=== PATIENT | female | born 1985 | race Caucasian/White ===

== ENCOUNTER → 2016-08-05 | Outpatient (CLI) | payer BC, OTHER ==
[~2016-08-05] MED LIST: ACET325T96 PO; IBUP-1050 PO; NORE1CHW2 PO; OXYC-57 PO; PRENTAB26 PO
[2016-08-05 10:56] LABS: HEMATOCRIT 33.3 % (37-47)
[2016-08-05 11:39] LABS: GTGD 50 Grams
[2016-08-05 18:28] LABS: URINE APPEARANCE CLOUDY (CLEAR); URINE BILIRUBIN NEG (NEG); URINE COLOR DK YELLOW; URINE EPITHELIAL CELL AUTO >30 /lpf (0-5); URINE NITRITE NEG (NEG); URINE SPECIFIC GRAVITY 1.023 (1.000-1.030); UROBILINOGEN NEG (NEG)
[2016-08-05 18:29] LABS: MANUAL MICROSCOPIC REQUIRED? NO; REVIEW REQ? YES
== END | disposition home or self-care (01) ==
LOC: C.LAB1850 09:40
PROVIDERS: ATTEND Obstetrics & Gynecology
DX: Z34.83 Encounter for supervision of other normal pregnancy, third trimester (principal)

== ENCOUNTER → 2016-08-13 | Outpatient (CLI) | payer BC, OTHER | END | disposition home or self-care (01) | LOC: C.LAB1850 09:06 | PROVIDERS: ATTEND Obstetrics & Gynecology | DX: O28.9 Unspecified abnormal findings on antenatal screening of mother (principal); Z3A.00 Weeks of gestation of pregnancy not specified ==

== ENCOUNTER → 2016-10-08 | Outpatient (CLI) | payer BC, OTHER | END | disposition home or self-care (01) | LOC: C.LABSPEC 15:29 | PROVIDERS: ATTEND Obstetrics & Gynecology | DX: Z34.83 Encounter for supervision of other normal pregnancy, third trimester (principal) ==

== ENCOUNTER → 2016-12-23 | Outpatient (CLI) | payer BC, OTHER ==
[~2016-12-23] MED LIST changes: -ACET325T96 PO; -IBUP-1050 PO; -NORE1CHW2 PO
== END | disposition home or self-care (01) ==
LOC: C.PAPS 13:44
PROVIDERS: ATTEND Obstetrics & Gynecology
DX: Z01.419 Encounter for gynecological examination (general) (routine) without abnormal findings (principal)

== ENCOUNTER → 2017-01-17 | Outpatient (CLI) | payer BC ==
[~2017-01-17] MED LIST changes: -OXYC-57 PO
[2017-01-17 12:09] LABS: BASO % 0.5 %; BASO ABS # 0.04 K/uL (0-0.2); COMPLETE YES; EOS % 3.1 %; HEMATOCRIT 39.1 % (37-47); IG% 0.1 %; LYMPH % 39.3 %; LYMPH ABS # 3.21 K/uL (1.2-3.4); MEAN CELL VOLUME 90.5 fL (80-100); MEAN CORPUSCULAR HEMOGLOBIN 29.2 pg (25-34); MEAN CORPUSCULAR HGB CONC 32.2 g/dl (32-36); MONO % 5.6 %; NEUT % 51.4 %; PLATELET COUNT 264 K/uL (130-400); RED BLOOD COUNT 4.32 M/uL (4.2-5.4); WHITE BLOOD COUNT 8.16 K/uL (4.8-10.8)
== END | disposition home or self-care (01) ==
LOC: C.LAB1850 10:48
PROVIDERS: ATTEND Obstetrics & Gynecology
DX: Z01.818 Encounter for other preprocedural examination (principal)

== ENCOUNTER → 2017-01-23 | Day surgery (SDC) | payer BC, OTHER ==
[2016-12-31 14:50] VITALS: Ht 152.4 cm; Wt 60.0 kg
[~2017-01-23] VITALS: Ht 152.4 cm; Wt 60.0 kg
[~2017-01-23] MED LIST changes: +ATROPINE SULFATE 0.1 MG/ML 5ML SYR IV PRN; +BUPIVACAINE 0.25% 2.5MG/ML PF 10 ML VIAL ONE; +DEXAMETHASONE SOD INJ 4 MG/ML VIAL ONE; +EpHEDrine SULFATE INJ 50 MG/ML AMP IV PRN; +EpHEDrine SULFATE INJ 50 MG/ML AMP ONE; +FENTANYL CITRATE INJ 50 MCG/1 ML 2 ML VIAL ONE; +GLYCOPYRROLATE INJ 0.2 MG/ML VIAL ONE; +KETOROLAC TROMETHAMINE 30 MG/ML VIAL ONE; +LABETALOL HCL IV 5 MG/ML 20ML IV ONE; +LACTATED RINGER'S 1000ML 1,000 ML IV SCH; +LIDOCAINE HCL 2% 2 ML VIAL (20MG/ML) ONE; +MIDAZOLAM HCL 1 MG/ML 2ML VIAL ONE; +NEOSTIGMINE METHYLSULFATE 5 MG/5 ML SYR ONE; +ONDANSETRON INJ 2 MG/ML 2 ML VIAL IV PRN; +ONDANSETRON INJ 2 MG/ML 2 ML VIAL ONE; +OXYC-57 PO; +OXYCODONE/ACETAMINOPHEN 5-325 TAB PO PRN; +PHENYLEPHRINE HCL INJ 10 MG/ML VIAL ONE; +PROMETHAZINE HCL INJ 25 MG in SODIUM CHLORIDE 0.9% 50ML 50 ML IV PRN; +PROPOFOL IV EMULSION 10 MG/ML 20 ML VIAL IV ONE; +ROCURONIUM BROMIDE 10 MG/ML 5 ML VIAL ONE; +SODIUM CHLORIDE 0.9% 1000ML 1,000 ML IV SCH; +SUCCINYLCHOLINE CHLORIDE 20 MG/ML 10 ML VIAL IV ONE
--- NOTE | 2017-01-23 07:32 | History & Physical Bridge - SC ---
H&P Re-Evaluation Bridge Note: I have examined the patient, reviewed the History & Physical and in the interval since the performance of the History & Physical I have noted the following changes of clinical significance: No changes noted
--- NOTE | 2017-01-23 08:33 | [facility] Post Operative Brief Note ---
Immediate Operative Summary Operative Date Jan 23, 2017. Pre-Operative Diagnosis Encounter for Contraceptive Management Post-Operative Diagnosis Same Procedure(s) Performed Laparoscopic Tubal Sterilization with Filshie clip Surgeon Dr. Weaver Cook Fry Surgeon(s) None Estimated Blood Loss 10 ml Findings Normal appearing uterus, tubes, ovaries, bowel. Liver edge appears normal. Appendix surgically absent. Gallbladder not visualized. Specimens None Drains smith clear yellow Anesthesia general Complication(s) None Disposition Recovery Room / PACU
--- NOTE | 2017-01-23 08:40 | [facility] Operative Report ---
Operative Report Operative Date Jan 23, 2017. Pre-Operative Diagnosis Encounter for Contraceptive Management Post-Operative Diagnosis Same Procedure(s) Performed Laparoscopic Tubal Sterilization with Filshie clip Surgeon Dr. Weaver Small Equipment Operator Surgeon(s) None Estimated Blood Loss 10 ml Findings Normal appearing uterus, tubes, ovaries. Gallbladder not seen. Appendix surgically absent. Liver edge appears normal. Specimens None Drains smith, clear yellow Anesthesia general Complication(s) None Disposition Recovery Room / PACU Implants Filshie clips Indications Desire for permanent sterilization Description of Procedure The patient was seen in the preop area, RBA reviewed, she elected to proceed with surgery. She had previously signed informed consent in the office. She is aware the procedure is permanent and that there is a risk of 1-2 per 1000 . She was taken to the operating room, where general anesthesia was introduced. She was placed in the dorsal lithotomy position with feet in Yellofin stirrups. She was prepared and draped in usual sterile fashion. Smith catheter was placed. Weighted speculum was placed, cervix was visualized and anterior lip grasped with Allis clamp. Uterine manipulator inserted. Gloves changed and attention turned to abdomen. 1% marcaine was injected at the incision site. An infra-umbilical incision was made with scalpel, and using open Rowe technique, the umbilical trocar was placed. Intra-abdominal placement was confirmed and the abdomen was insufflated with CO2 gas to 15mmHg. The above noted findings were seen. 1% marcaine was injected at the incision site and the suprapubic incision was made with scalpel. Under direct visualization, the suprapubic port was placed. The bilateral fallopian tubes were identified, and visualized in their entirety to the fimbria. Bilateral filshie clips were placed. Suprapubic trocar was removed under direct visualization, the abdomen was desufflated, and the umbilical trocar was removed. 0-vicryl was used to reapproximate infraumbilical fascia, and the skin at both sites was reapproximated with 4-0 vicryl in subticular stitches. Bandages were applied. The patient tolerated the procedure well and was taken to the recovery area in stable and good condition. I attest to the content of the Intraoperative Record and any orders documented therein. Any exceptions are noted below. Copy To Ethel Weaver D.O.
--- NOTE | 2017-01-23 08:42 | Discharge Instructions-SurgCtr ---
Discharge Instructions Date of Service Jan 23, 2017. Visit Reason for Visit: Encounter For Contraceptive Mgmt Discharge Discharge Diagnosis / Problem: s/p tubal ligation Discharge Goals Goal(s): Therapeutic intervention Activity Recommendations Activity Limitations: per Instructions/Follow-up section Anesthesia . Post Anesthesia Instructions: If you have had General Anesthesia or IV Sedation: * Do not drive today. * Resume driving when surgeon permits. * Do not make important decisions or sign legal documents today. * Call surgeon for: 1. Temperature elevations greater than 101 degrees F. 2. Uncontrollable pain. 3. Excessive bleeding. 4. Persistent nausea and vomiting. 5. Medication intolerance (nausea, vomiting or rash). * For nausea and vomiting use only clear liquids such as: tea, soda, bouillon until nausea subsides, then gradually increase diet as tolerated. * If you have any concerns or questions, call your surgeon's office. If physician is unavailable and it is an emergency, call 911 or go to the nearest emergency room. . Instructions / Follow-Up Instructions / Follow-Up ACTIVITY RECOMMENDATIONS: * Rest the first 2-3 days. You should be back to your normal activity levels by day 3. * No heavy lifting for 2 weeks. * No intercourse, tampons or douching for 1-2 weeks. * You may shower the next day. * Do not drive anytime that you are taking narcotic pain medicines. RETURN TO SCHOOL/WORK: * May return to school or work after 2-3 days. DIET: Nausea may occur in the immediate post-operative period. If so, take clear liquids such as tea, bouillon, apple juice until all nausea has subsided, then resume usual diet. MEDICATIONS: Resume previous medications unless instructed otherwise by your surgeon. Ibuprofen 200mg 2-3 tablets every 4-6 hours as needed -- OR -- Aleve 2 tablets every 8-12 hours as needed for post-operative discomfort Medications are over the counter. Tylenol may be used if above medications are contraindicated or not preferred. Medication should be taken with food or milk. Do not take on an empty stomach. SPECIAL CARE INSTRUCTIONS: * Check temperature twice daily for one week. report any elevation over 101 degrees. * You may experience some vagina spotting and/or bleeding. This is normal for 1 -2 weeks and should not be heavier than a normal period. If it is unusual in amount, call your physician. * Post-operative discomfort may consist of a sore throat, a "bloated" feeling and pain in the shoulders. these are normal symptoms, which usually only last for 2-3 days. * Remove band-aids tomorrow and shower. There is no need to replace band-aids unless there is drainage or discomfort. FOLLOW UP VISIT: Call your doctor's office for a post-operative 2 week visit if not already scheduled. Diet Recommendations Home Diet: resume previous diet Procedures Procedures Performed: Laparoscopic Tubal Sterilization with Filshie clip Pending Studies Studies pending at discharge: no Medical Emergencies . Who to Call and When: Medical Emergencies: If at any time you feel your situation is an emergency, please call 911 immediately. . Non-Emergent Contact Non-Emergency issues call your: Primary Care Provider, Agriculture Mechanic . . "Provider Documentation" section prepared by Ethel Weaver. . [place] Drug Monitoring Program Search Results: patient reviewed within database
[2017-01-23] MEDS: FENTANYL CITRATE INJ 50 MCG/1 ML 2 ML VIAL IV PRN ×2 (08:54→09:01)
[2017-01-23 09:32] VITALS: TEMP 36.6
[2017-01-23 09:58] VITALS: BP 97/66; PULSE 59; O2SAT 97
--- NOTE | 2017-01-23 10:01 | Anesthesia Progress Nt - [facility] ---
Anesthesia Post Op Note Date & Time Jan 23, 2017 at 10:01 Vital Signs Pain Intensity: 4.0 Vital Signs Past 12 Hours Date Time Temp Pulse Resp B/P (MAP) Pulse Ox O2 Delivery O2 Flow Rate FiO2 01/23/17 09:32 36.6 59 16 100/63 (75) 100 Room Air 01/23/17 09:17 57 16 01/23/17 09:17 57 16 01/23/17 09:17 57 16 96 01/23/17 09:17 57 16 96 01/23/17 09:16 57 15 01/23/17 09:16 37.0 58 12 127/80 96 Room Air 01/23/17 09:16 56 15 96 01/23/17 09:13 110/58 01/23/17 09:11 64 13 98 01/23/17 09:11 65 13 01/23/17 09:10 71 12 98 01/23/17 09:10 71 12 01/23/17 09:07 128/78 01/23/17 09:05 59 13 100 01/23/17 09:05 58 13 01/23/17 09:05 37.0 58 12 122/50 100 Diffusion Mask 6 01/23/17 09:02 122/50 01/23/17 09:00 65 9 01/23/17 09:00 69 9 100 01/23/17 08:59 78 16 100 01/23/17 08:59 79 16 01/23/17 08:57 123/70 01/23/17 08:54 62 18 01/23/17 08:54 60 18 100 01/23/17 08:51 108/68 01/23/17 08:49 74 18 01/23/17 08:49 88 18 91 01/23/17 08:46 114/77 01/23/17 08:44 70 19 01/23/17 08:44 68 19 99 01/23/17 08:41 120/74 01/23/17 08:39 75 25 01/23/17 08:39 75 25 97 01/23/17 08:36 120/76 01/23/17 08:34 36.2 84 16 120/76 98 Diffusion Mask 6 01/23/17 06:38 36.6 86 16 109/69 (82) 99 Room Air Notes Mental Status: alert / awake / arousable, participated in evaluation Pt Amnestic to Procedure: Yes Nausea / Vomiting: adequately controlled Pain: adequately controlled Airway Patency, RR, SpO2: stable & adequate BP & HR: stable & adequate Hydration State: stable & adequate Anesthetic Complications: no major complications apparent
== END | disposition home or self-care (01) ==
LOC: X.SURG 06:30
PROVIDERS: ATTEND Obstetrics & Gynecology
DX: Z30.2 Encounter for sterilization (principal); E03.9 Hypothyroidism, unspecified; Z90.49 Acquired absence of other specified parts of digestive tract; Z87.891 Personal history of nicotine dependence; Z80.3 Family history of malignant neoplasm of breast

== ENCOUNTER 2017-10-31 16:08 | Emergency (ER) | payer BC, OTHER ==
[~2017-10-31] VITALS: Ht 152.4 cm; Wt 62.5 kg
[~2017-10-31 16:08] MED LIST changes: -ATROPINE SULFATE 0.1 MG/ML 5ML SYR IV PRN; -BUPIVACAINE 0.25% 2.5MG/ML PF 10 ML VIAL ONE; -DEXAMETHASONE SOD INJ 4 MG/ML VIAL ONE; -EpHEDrine SULFATE INJ 50 MG/ML AMP IV PRN; -EpHEDrine SULFATE INJ 50 MG/ML AMP ONE; -FENTANYL CITRATE INJ 50 MCG/1 ML 2 ML VIAL ONE; -GLYCOPYRROLATE INJ 0.2 MG/ML VIAL ONE; -KETOROLAC TROMETHAMINE 30 MG/ML VIAL ONE; -LABETALOL HCL IV 5 MG/ML 20ML IV ONE; -LACTATED RINGER'S 1000ML 1,000 ML IV SCH; -LIDOCAINE HCL 2% 2 ML VIAL (20MG/ML) ONE; -MIDAZOLAM HCL 1 MG/ML 2ML VIAL ONE; -NEOSTIGMINE METHYLSULFATE 5 MG/5 ML SYR ONE; -ONDANSETRON INJ 2 MG/ML 2 ML VIAL IV PRN; -ONDANSETRON INJ 2 MG/ML 2 ML VIAL ONE; -OXYCODONE/ACETAMINOPHEN 5-325 TAB PO PRN; -PHENYLEPHRINE HCL INJ 10 MG/ML VIAL ONE; -PROMETHAZINE HCL INJ 25 MG in SODIUM CHLORIDE 0.9% 50ML 50 ML IV PRN; -PROPOFOL IV EMULSION 10 MG/ML 20 ML VIAL IV ONE; -ROCURONIUM BROMIDE 10 MG/ML 5 ML VIAL ONE; -SODIUM CHLORIDE 0.9% 1000ML 1,000 ML IV SCH; -SUCCINYLCHOLINE CHLORIDE 20 MG/ML 10 ML VIAL IV ONE
[2017-10-31 16:13] VITALS: TEMP 36.9; Ht 152.4 cm; Wt 62.5 kg
[2017-10-31] MEDS ORDERED: ONDANSETRON INJ 2 MG/ML 2 ML VIAL IV STA (16:22)
[2017-10-31] MEDS ORDERED: GI COCKTAIL PO STA (16:22)
[2017-10-31] MEDS ORDERED: SODIUM CHLORIDE 0.9% 1000ML 2,000 ML IV STA (16:22)
[2017-10-31] MEDS ORDERED: FAMOTIDINE 20 MG TAB PO ONE (16:30)
[2017-10-31 17:00] LABS: BASO % 0.5 %; BASO ABS # 0.03 K/uL (0-0.2); EOS % 1.3 %; EOS ABS # 0.08 K/uL (0-0.5); HEMOGLOBIN 13.6 g/dL (12.0-16.0); IG# 0.01 K/uL (0.00-0.02); LYMPH % 25.8 %; LYMPH ABS # 1.56 K/uL (1.2-3.4); MEAN CELL VOLUME 90.9 fL (80-100); MEAN CORPUSCULAR HEMOGLOBIN 30.9 pg (25-34); MEAN PLATELET VOLUME 11.2 fL (7.4-10.4); MONO % 6.6 %; NEUT % 65.6 %; NEUT ABS # 3.97 K/uL (1.4-6.5); PLATELET COUNT 181 K/uL (130-400); RED CELL DISTRIBUTION WIDTH CV 12.2 % (11.5-14.5); WHITE BLOOD COUNT 6.05 K/uL (4.8-10.8)
[2017-10-31] MEDS ORDERED: ALUMINUM/MAGNESIUM SUSP 30 ML UDC ONE (17:00)
[2017-10-31] MEDS ORDERED: LIDOCAINE HCL 2% VISC SOLN 20 ML UDC ONE (17:01)
--- NOTE | 2017-10-31 17:03 | DIAGNOSTIC IMAGING REPORT ---
SINGLE VIEW CHEST CLINICAL HISTORY: Generalized abdominal pain. FINDINGS: An AP, portable, upright chest radiograph is compared to study dated 11/16/2012. The examination is degraded by portable technique and patient rotation. The cardiomediastinal silhouette is unremarkable. The lungs and pleural spaces are clear. No pneumothorax is seen. The bony thorax is grossly intact. IMPRESSION: No active disease in the chest. Electronically signed by: Emanuel Mathew M.D. 10/31/2017 5:02 PM Dictated Date/Time: 10/31/2017 5:01 PM
[2017-10-31 17:20] LABS: ALBUMIN 4.2 gm/dl (3.4-5.0); ALT/SGPT 18 U/L (12-78); AST/SGOT 13 U/L (15-37); BLOOD UREA NITROGEN 15 mg/dl (7-18); CARBON DIOXIDE 25 mmol/L (21-32); CREATININE 0.67 mg/dl (0.60-1.20); GLUCOSE 76 mg/dl (70-99); LIPASE 67 U/L (73-393); POTASSIUM 3.4 mmol/L (3.5-5.1); SODIUM 139 mmol/L (136-145)
[2017-10-31 17:26] LABS: ALKALINE PHOSPHATASE 69 U/L (45-117); TOTAL PROTEIN 8.3 gm/dl (6.4-8.2)
[2017-10-31] MEDS ORDERED: FAMO20TA9 PO (18:03)
[2017-10-31] MEDS ORDERED: ONDA4TAB10 SL (18:03)
--- NOTE | 2017-10-31 18:06 | EMERGENCY ROOM VISIT NOTE ---
History Report prepared by Zahira: Floyd Jama Under the Supervision of: Dr. Alec Mann M.D. First contact with patient: 16:19 Chief Complaint: ABDOMINAL PAIN Stated Complaint: ABDOMINAL PAIN, BACK PAIN, DIARRHEA History of Present Illness The patient is a 32 year old female who presents to the Emergency Room with complaints of persistent nausea and diarrhea that she has been experiencing for the past four days. She is having upwards of 8 bowel movements per day. The patient denies any vomiting with the nausea, but notes that she intermittently feels like "something is coming up into my throat." The patient also notes some upper epigastric discomfort for the past two weeks. This pain will radiate down into her lower back and up into her neck. This pain is worsened by pressing on the epigastrium. She does have some intermittent "tightness in her chest." She states that this is chronic, and her PCP has told her that this is likely due to anxiety. Source of History: patient Onset: Nausea/Diarrhea 4 days, Abd pain 2 weeks Position: abdomen Symptom Intensity: 8 bm of diarrhea per day Quality: other (Diarrhea,nausea) Modifying Factors (Worsening): other (pressing on the epigastrium) Associated Symptoms: + neck pain, + chest pain, + nausea, + abdominal pain, + back pain, + diarrhea Review of Systems See HPI for pertinent positives and negatives. A total of ten systems were reviewed and were otherwise negative. Past Medical & Surgical Medical Problems: (1) Headache (2) History of LEEP (loop electrosurgical excision procedure) of cervix complicating in third trimester (3) Intrauterine (4) Normal labor (5) Supervision of normal intrauterine in multigravida in third trimester Surgical Problems: (1) History of cholecystectomy (2) laceration repair Family History Diabetes mellitus Gallbladder disease Heart disease Social History Smoking Status: Never Smoker Alcohol Use: none Marital Status: in relationship Housing Status: lives with family Occupation Status: employed Current/Historical Medications Scheduled Ondasetron Odt (Zofran Odt), 4 MG SL Q6H Scheduled PRN Famotidine (Pepcid), 20 MG PO BID PRN for GI Upset Allergies Coded Allergies: No Known Allergies (Verified , 10/31/17) Physical Exam Vital Signs Date Time Temp Pulse Resp B/P (MAP) Pulse Ox O2 Delivery O2 Flow Rate FiO2 10/31/17 18:31 85 20 91/59 100 10/31/17 18:28 85 20 91/59 100 Room Air 10/31/17 17:29 93 10/31/17 16:13 36.9 118 18 108/63 98 Room Air Physical Exam GENERAL: Awake, alert, well-appearing, in no distress HENT: Normocephalic, atraumatic. Mucous Membranes are Dry. EYES: Normal conjunctiva. Sclera non-icteric. NECK: Supple. No nuchal rigidity. FROM. No JVD. RESPIRATORY: Clear to auscultation. CARDIAC: Regular rate, normal rhythm. Extremities warm and well perfused. Pulses equal. ABDOMEN: Soft, non-distended. There is mild epigastric discomfort, no discrete tenderness to palpation. Equivocal Blanco's sign. No rebound or guarding. No masses. RECTAL: Deferred. MUSCULOSKELETAL: Chest examination reveals no tenderness. The back is symmetrical on inspection without obvious abnormality. There is no CVA tenderness to palpation. No joint edema. LOWER EXTREMITIES: Calves are equal size bilaterally and non-tender. No edema. No discoloration. NEURO: Normal sensorium. No sensory or motor deficits noted. SKIN: No rash or jaundice noted. Medical Decision & Procedures ER Provider Diagnostic Interpretation: Radiology results as stated below per my review and radiologist interpretation: SINGLE VIEW CHEST CLINICAL HISTORY: Generalized abdominal pain. FINDINGS: An AP, portable, upright chest radiograph is compared to study dated 11/16/2012. The examination is degraded by portable technique and patient rotation. The cardiomediastinal silhouette is unremarkable. The lungs and pleural spaces are clear. No pneumothorax is seen. The bony thorax is grossly intact. IMPRESSION: No active disease in the chest. Electronically signed by: Emanuel Mathew M.D. 10/31/2017 5:02 PM Dictated Date/Time: 10/31/2017 5:01 PM Laboratory Results 10/31/17 16:45 Red Blood Count 4.40, Mean Corpuscular Volume 90.9, Mean Corpuscular Hemoglobin 30.9, Mean Corpuscular Hemoglobin Concent 34.0, Mean Platelet Volume 11.2, Neutrophils (%) (Auto) 65.6, Lymphocytes (%) (Auto) 25.8, Monocytes (%) (Auto) 6.6, Eosinophils (%) (Auto) 1.3, Basophils (%) (Auto) 0.5, Neutrophils # (Auto) 3.97, Lymphocytes # (Auto) 1.56, Monocytes # (Auto) 0.40, Eosinophils # (Auto) 0.08, Basophils # (Auto) 0.03 10/31/17 16:45 Test 10/31/17 16:45 White Blood Count 6.05 K/uL (4.8-10.8) Red Blood Count 4.40 M/uL (4.2-5.4) Hemoglobin 13.6 g/dL (12.0-16.0) Hematocrit 40.0 % (37-47) Mean Corpuscular Volume 90.9 fL (80-100) Mean Corpuscular Hemoglobin 30.9 pg (25-34) Mean Corpuscular Hemoglobin Concent 34.0 g/dl (32-36) Platelet Count 181 K/uL (130-400) Mean Platelet Volume 11.2 fL (7.4-10.4) Neutrophils (%) (Auto) 65.6 % Lymphocytes (%) (Auto) 25.8 % Monocytes (%) (Auto) 6.6 % Eosinophils (%) (Auto) 1.3 % Basophils (%) (Auto) 0.5 % Neutrophils # (Auto) 3.97 K/uL (1.4-6.5) Lymphocytes # (Auto) 1.56 K/uL (1.2-3.4) Monocytes # (Auto) 0.40 K/uL (0.11-0.59) Eosinophils # (Auto) 0.08 K/uL (0-0.5) Basophils # (Auto) 0.03 K/uL (0-0.2) RDW Standard Deviation 41.0 fL (36.4-46.3) RDW Coefficient of Variation 12.2 % (11.5-14.5) Immature Granulocyte % (Auto) 0.2 % Immature Granulocyte # (Auto) 0.01 K/uL (0.00-0.02) Anion Gap 6.0 mmol/L (3-11) Est Creatinine Clear Calc Drug Dose 100.4 ml/min Estimated GFR () 135.8 Estimated GFR (Non- 117.1 BUN/Creatinine Ratio 22.0 (10-20) Calcium Level 9.0 mg/dl (8.5-10.1) Total Bilirubin 0.7 mg/dl (0.2-1) Direct Bilirubin 0.1 mg/dl (0-0.2) Aspartate Amino Transf (AST/SGOT) 13 U/L (15-37) Alanine Aminotransferase (ALT/SGPT) 18 U/L (12-78) Alkaline Phosphatase 69 U/L (45-117) Troponin I < 0.015 ng/ml (0-0.045) Total Protein 8.3 gm/dl (6.4-8.2) Albumin 4.2 gm/dl (3.4-5.0) Lipase 67 U/L (73-393) Laboratory results reviewed by me Medications Administered Medications (Trade) Dose Ordered Sig/Kiran Route Start Time Stop Time Status Last Admin Dose Admin Famotidine (Pepcid Tab) 20 mg NOW ONCE PO 10/31/17 16:30 10/31/17 16:33 DC 10/31/17 17:06 20 MG Ondansetron HCl (Zofran Inj) 4 mg NOW STAT IV 10/31/17 16:22 10/31/17 16:33 DC 10/31/17 17:06 4 MG Sodium Chloride 2,000 ml @ 999 mls/hr Q2H1M STAT IV 10/31/17 16:22 10/31/17 18:22 DC 10/31/17 17:06 999 MLS/HR Al Hydroxide/Mg Hydroxide (Maalox Susp) 30 ml STK-MED ONCE .ROUTE 10/31/17 17:00 10/31/17 17:01 DC 10/31/17 17:06 30 ML Lidocaine HCl (Viscous Lidocaine 2% Soln) 20 ml STK-MED ONCE .ROUTE 10/31/17 17:01 10/31/17 17:02 DC 10/31/17 17:07 20 ML Procedure BEDSIDE ULTRA SOUND: I performed a bedside US. No gallstones present. ECG Per My Interpretation Indication: chest pain Rate (beats per minute): 91 Rhythm: normal sinus Findings: other (Normal [place], No KATHRYN/STD) ED Course 1632: The patient was evaluated in room B8. A complete history and physical exam was performed. 1650: I performed a beside US at this time. There are no Gallstone on imaging. Medical Decision I reviewed the patient's past medical history, medications, and the nursing notes as described above. Differential diagnosis: Etiologies such as appendicitis, diverticulitis, PUD, biliary pathology, UTI, pancreatitis, obstruction, mesenteric ischemia, aortic pathology, infections, inflammatory bowel disease, renal colic, cardiac ischemia, aortic dissection, pulmonary embolism, pneumonia, pneumothorax, musculoskeletal, infections, pericarditis, myocarditis, esophageal rupture, gastrointestinal, as well as others were entertained. The patient is a 32-year-old woman who presents to the emergency department with epigastric pain, nausea vomiting, diarrhea per hpi. Arrival patient is fatigued appearing but no acute distress, afebrile with heart rate in the 1 teens and vital signs otherwise stable. On exam the patient appears clinically dry. She has mild epigastric discomfort but no discrete tenderness. Equivocal Blanco sign. Bedside ultrasound of the patient's gallbladder negative for gallstones or pericholecystic fluid. However she had a negative sonographic Blanco sign. Labs unremarkable including WBC and troponin within normal limits. EKG unremarkable. Patient reassessed and feeling improved after IV fluids, Zofran, Pepcid, GI cocktail. No further episodes of diarrhea in the emergency department. Heart score 1, low risk, acs unlikely. No hypoxia or pleuritic symptoms thus PE not likely. Not positional, pericarditis not likely. No tearing pain and equal pulses, dissection not likely. Given the patient's improvement with GI medications, symptoms most consistent with a gastroenteritis. Findings and plan for follow-up reviewed with patient. Patient agreeable and d/c'd per discharge instructions. Medication Reconcilliation Current Medication List: was personally reviewed by me Blood Pressure Screening Patient's blood pressure: Normal blood pressure Impression Primary Impression: Acute gastroenteritis Scribe Attestation The scribe's documentation has been prepared under my direction and personally reviewed by me in its entirety. I confirm that the note above accurately reflects all work, treatment, procedures, and medical decision making performed by me. Departure Information Dispostion Home / Self-Care Prescriptions Ondasetron Odt (ZOFRAN ODT) 4 Mg Tab 4 MG SL Q6H for Nausea, #10 TAB Prov: Alec Mann M.D. 10/31/17 Famotidine (PEPCID) 20 Mg Tab 20 MG PO BID Y for GI Upset, #14 TAB Prov: Alec Mann M.D. 10/31/17 Referrals Roel Alvarez M.D. (PCP) Patient Instructions ED Gastroenteritis Viral, My [facility] Additional Instructions Please follow up with your primary care physician on Friday for re-evaluation. You likely have a viral GI illness. Otherwise, your exam, EKG, chest xray, lab results, and bedside gallbladder ultrasound did not show signs of an emergent condition at this time. Pepcid as needed for GI upset/acid reduction. Zofran as needed for nausea. If having multiple episodes of diarrhea throughout the day you may use over-the- counter Imodium, so long as you do not develop worsening symptoms such as fevers , body aches, abdominal pain. Drink plenty of fluids to ensure hydration. Return to the emergency department for worsening symptoms as described in the accompanying instructions.
[2017-10-31 18:31] VITALS: BP 91/59; PULSE 85; O2SAT 100
== END 2017-10-31 18:32 | disposition home or self-care (01) ==
LOC: C.EDB 16:09
DX: K52.9 Noninfective gastroenteritis and colitis, unspecified (principal); Z90.49 Acquired absence of other specified parts of digestive tract; Z83.3 Family history of diabetes mellitus